=== PATIENT | male | born 1990 | race Hispanic/Latino ===

== ENCOUNTER 2020-11-20 21:33 | Observation (INO) | payer OTHER ==
[~2020-11-20] VITALS: Ht 170.2 cm; Wt 95.7 kg
[2020-11-20] MEDS ORDERED: MORPHINE SULFATE INJ 4 MG/ML INJ 1ML IV STA (21:56)
[2020-11-20] MEDS ORDERED: SODIUM CHLORIDE 0.9% 1000ML 1,000 ML IV STA (21:56)
[2020-11-20] MEDS ORDERED: PROMETHAZINE 25MG/ NS 50ML (IV) IV ONE (22:00)
[2020-11-20] MEDS ORDERED: FAMOTIDINE 20 MG/2 ML VIAL IV ONE ×2 (22:00→22:11)
[2020-11-20] MEDS ORDERED: MORPHINE SULFATE INJ 4 MG/ML INJ 1ML ONE (22:10)
[2020-11-20] MEDS ORDERED: PROMETHAZINE HCL (IM) 25 MG/ML VIAL IM ONE (22:10)
[2020-11-20] MEDS ORDERED: SODIUM CHLORIDE 0.9% 1000ML 1,000 ML ONE (22:11)
[2020-11-20] MEDS ORDERED: SODIUM CHLORIDE 0.9% 50ML 50 ML ONE (22:13)
[2020-11-20] MEDS ORDERED: IOPAMIDOL 370 MG/ML 200 ML INFUS..BTL INJ ONE (22:13)
[2020-11-20] MEDS ORDERED: PIPER-TAZ 3.375 GM 50 ML ONE (23:37)
[2020-11-20] MEDS ORDERED: PIPER-TAZ 3.375 GM 50 ML IV ONE (23:45)
[2020-11-21] MEDS ORDERED: ONDANSETRON HCL INJ 2MG/ML 2ML 2 MG/ML VIAL IV PRN ×2 (00:15→11:15)
[2020-11-21] MEDS ORDERED: DIPHENHYDRAMINE HCL INJ 50 MG/ML VIAL IV PRN (00:15)
[2020-11-21] MEDS: MORPHINE SULFATE INJ 4 MG/ML INJ 1ML IV PRN ×2 (01:49→12:44)
[2020-11-21] MEDS ORDERED: MORPHINE SULFATE INJ 4 MG/ML INJ 1ML ONE (01:57)
[2020-11-21 02:30] VITALS: BP 109/74
[2020-11-21] MEDS: SODIUM CHLORIDE 0.9% 1000ML 1,000 ML IV SCH ×2 (02:30→08:15)
[2020-11-21 04:00] VITALS: BP 107/72
[2020-11-21] MEDS ORDERED: PIPER-TAZ 3.375 GM 50 ML IV ONE (06:00)
[2020-11-21 08:53] VITALS: BP 121/78
[2020-11-21 09:19] VITALS: BP 121/78
[2020-11-21] MEDS ORDERED: BUPIVACAINE HCL 0.5% INJ 30 ML VIAL INJ ONE (10:11)
[2020-11-21] MEDS ORDERED: SODIUM CHLORIDE 0.9% 1000ML 1,000 ML IV SCH (11:15)
[2020-11-21] MEDS ORDERED: HYDROCODONE/APAP 5MG-325MG TAB PO PRN (11:15)
[2020-11-21] MEDS ORDERED: ACETAMINOPHEN 325 MG TAB PO PRN (11:15)
[2020-11-21] MEDS ORDERED: PIPER-TAZ 3.375 GM 50 ML IV SCH ×2 (12:00)
[2020-11-21] MEDS ORDERED: NEOSTIGMINE 1 MG/ML 10ML VIAL ONE (12:25)
[2020-11-21] MEDS ORDERED: DEXAMETHASONE SOD PHOS INJ 4 MG/ML VIAL ONE (12:25)
[2020-11-21] MEDS ORDERED: LIDOCAINE HCL 2% LOCAL INJ 5 ML SDV VIAL INJ ONE (12:25)
[2020-11-21] MEDS ORDERED: ONDANSETRON HCL INJ 2MG/ML 2ML 2 MG/ML VIAL ONE (12:25)
[2020-11-21] MEDS ORDERED: GLYCOPYRROLATE INJ 0.2 MG/ML VIAL ONE (12:25)
[2020-11-21] MEDS ORDERED: PROPOFOL IV EMULSION 10 MG/ML 20 ML VIAL ONE (12:25)
[2020-11-21] MEDS ORDERED: LIDOCAINE HCL 2% JELLY 5 ML TUBE ONE (12:25)
[2020-11-21] MEDS ORDERED: SEVOFLURANE INHAL SOLN 250 ML PEN BTL ONE (12:25)
[2020-11-21 13:29] VITALS: BP 113/76
[2020-11-21] MEDS ORDERED: TYLENOL # 31 EA PO (14:58)
[2020-11-21 16:48] VITALS: BP 103/71
[2020-11-22] MEDS ORDERED: PANTOPRAZOLE 40 MG 10ML VIAL IV SCH (07:30)
== END 2020-11-21 16:40 | disposition home or self-care (01) ==
LOC: FSED 21:57 → ERHOLD 11-21 00:15 → MED/SURG 11-21 02:18
PROVIDERS: ADMIT Internal Medicine; ATTEND Internal Medicine
DX: K35.80 Unspecified acute appendicitis (principal); R00.0 Tachycardia, unspecified; E78.5 Hyperlipidemia, unspecified; F41.9 Anxiety disorder, unspecified; Z20.822 Contact with and (suspected) exposure to COVID-19
CPT/HCPCS: 44970; 74177; 80048; 80076; 85025; 88304; G0378; J2270 ×2; J2543 ×2; J2550; J7030 ×2; Q9967; U0002; J1100; J2001; J2405; J2710

== ENCOUNTER 2021-02-04 13:56 | Emergency (ER) | payer OTHER ==
[~2021-02-04] VITALS: Ht 167.6 cm; Wt 93.9 kg
[~2021-02-04 13:56] MED LIST: TYLENOL # 31 EA PO
[2021-02-04] MEDS ORDERED: CYCLOBENZAPRINE5 MG PO (14:31)
[2021-02-04] MEDS ORDERED: NAPROSYN500 MG PO (14:31)
== END 2021-02-04 14:35 | disposition home or self-care (01) ==
LOC: FSED 14:30
DX: M79.631 Pain in right forearm (principal); S56.911A Strain of unspecified muscles, fascia and tendons at forearm level, right arm, initial encounter; E78.5 Hyperlipidemia, unspecified; F17.210 Nicotine dependence, cigarettes, uncomplicated
CPT/HCPCS: 99283

== ENCOUNTER 2022-03-28 12:16 | Emergency (ER) | payer BC, OTHER ==
[~2022-03-28] VITALS: Ht 170.2 cm; Wt 88.5 kg
[~2022-03-28 12:16] MED LIST changes: +CYCLOBENZAPRINE5 MG PO; +NAPROSYN500 MG PO
[2022-03-28] MEDS ORDERED: LIDOCAINE HCL 1% LOCAL INJ 20 ML VIAL ONE (13:00)
[2022-03-28] MEDS ORDERED: AMOXICILLIN/CLAVULANATE K 875 MG TAB PO STA (13:01)
[2022-03-28] MEDS ORDERED: AMOXICILLIN/CLAVULANATE K 875 MG TAB ONE (13:10)
[2022-03-28] MEDS ORDERED: HYDROCODONE/APAP 5MG-325MG TAB ONE (13:11)
[2022-03-28] MEDS ORDERED: HYDROCODONE/APAP 5MG-325MG TAB PO ONE (13:15)
[2022-03-28] MEDS ORDERED: HYDROCODON-ACE1 EAC9 PO (13:59)
[2022-03-28] MEDS ORDERED: IBUPROFEN600 MG PO (14:01)
[2022-03-28] MEDS ORDERED: AMOX TR-K CLV1 EAC2 PO (14:07)
== END 2022-03-28 14:23 | disposition home or self-care (01) ==
LOC: FSED 12:33
DX: K62.89 Other specified diseases of anus and rectum (principal); K61.1 Rectal abscess; E78.5 Hyperlipidemia, unspecified
CPT/HCPCS: 45005; 99283; J2001